=== PATIENT | male | born 1975 | race African-American/Black ===

== ENCOUNTER 2018-12-01 07:30 | Inpatient (IN) ==
[2018-12-01] MEDS ORDERED: NS 2,000 ML ONE (07:49)
[2018-12-01] MEDS ORDERED: NS 1,000 ML IV ONE ×4 (08:00→12:01)
--- NOTE | 2018-12-01 08:11 | PROVIDER DOCUMENTATION ---
HPI-General Adult - General Chief Complaint: Weakness Stated Complaint: FEELS LIKE NEEDS BLOOD Time Seen by Provider: 12/01/18 07:51 Source: patient Allergies/Adverse Reactions: Patient Allergies Allergy/AdvReac Type Severity Reaction Status Date / Time Penicillins Allergy SHORTNESS Verified 07/17/18 09:48 OF BREATH Home Medications: Home Medication List Medication Instructions Recorded Confirmed Last Taken Type Bictegrav/Emtricit/Tenofov Ala 1 each PO DAILY 07/17/18 12/01/18 Unknown History [Biktarvy 50-200-25 mg Tablet] - History of Present Illness -Gen Adult Nature of Presenting Problems: Patient with a history of chronic intermittent blood dyscrasia and HIV reports weakness and decreased appetite for 3 days. Denies fever, vomiting, diarrhea or cough. States that these symptoms are usually indicative of his hematologic flare up. Denies any current pain Location of Pain/Injury: reports: none Severity: reports: moderate Onset/Duration: reports: 3 days ago Modifying Factors: improves with: nothing Associated Symptoms: reports: fatigue. denies: back/neck pain, cough, fever/chills Similar Symptoms Previously?: Yes Recently seen or treated by another doctor?: Yes (ID physician (CD4 and viral load-"not bad but not as good as they could be") Review of Systems - Adult - REVIEW OF SYSTEMS - ADULT Constitutional: reports: see HPI. denies: chills, fever, night sweats, weight gain, weight loss Eyes: reports: no symptoms reported Ears, Nose, Mouth & Throat: reports: no symptoms reported Cardiovascular: reports: no symptoms reported Respiratory: reports: no symptoms reported Gastrointestinal: reports: poor appetite Genitourinary: reports: no symptoms reported Musculoskeletal: reports: no symptoms reported Integumentary: reports: no symptoms reported Neurological: reports: no symptoms reported Psychiatric: reports: no symptoms reported Endocrine: reports: no symptoms reported Hematologic/Lymphatic: reports: no symptoms reported Allergic/Immunologic: reports: no symptoms reported All Other Systems: Reviewed and Negative Past History - Adult - PAST MEDICAL HISTORY-ADULT Review of Records: reports: Old Records Reviewed Major Childhood Illnesses: reports: denies history Cardiovascular: reports: denies history Respiratory: reports: denies history Gastrointestinal: reports: denies history Obstetrical/Gynecological: reports: denies history Genitourinary: reports: other (FITO) Musculoskeletal: reports: denies history Neurological: reports: denies history Psychiatric: reports: denies history Endocrine/Immune: reports: HIV/AIDS Other Conditions: reports: denies history - PRIOR SURGERIES/PROCEDURES Surgical/Procedure History: reports: reviewed, not pertinent, other (rectal) - IMMUNIZATION STATUS Childhood Immunizations: See Nurse Assessment Flu Vaccine: See Nurse Assessment - FAMILY HISTORY Family History: reviewed, not pertinent Physical Exam-General - PHYSICAL EXAM-ADULT Initial Vital Signs Reviewed: Yes - CONSTITUTIONAL General Appearance: alert, mild distress - EYES Eyes: PERRL/EOMI, pale conjunctivae - HEAD, EARS, NOSE, MOUTH & THROAT HENMT: normocephalic/atraumatic, moist mucous membranes, normal ENT inspection - NECK Neck: non-tender, full range of motion - RESPIRATORY Respiratory: chest non-tender, lungs clear - CARDIOVASCULAR Cardiovascular: no edema, no JVD, tachycardia - GASTROINTESTINAL (ABDOMEN) Abdominal Exam: soft - MUSCULOSKELETAL Back Exam: normal inspection, no CVA tenderness, no vertebral tenderness Extremity: normal range of motion, non-tender - SKIN Integumentary: normal color, warm/dry. negative: rash - NEUROLOGIC Neurologic: epic [facility] II-XII nml as tested, grossly normal - PSYCHIATRIC Psych/Mental Status: normal mood/affect, normal thought content, normal thought process, oriented x 3 Progress - PLAN OF CARE/RESULTS Progress/Plan/Lab Results: Vital Signs - 8 hr 12/01/18 07:33 Temperature 97.5 F L Pulse Rate 99 H Respiratory Rate 18 Blood Pressure 81/54 O2 Sat by Pulse Oximetry 95 Orders Category Date Time Status CHEST-PORTABLE [RAD] Stat Exams 12/01/18 07:58 Ordered BLOOD CULTURE [BLDCUL] Stat Lab 12/01/18 08:00 Uncollected CBC WITH ELECTRONIC DIFF [HEME] Stat Lab 12/01/18 08:02 Ordered COMPREHENSIVE METABOLIC PANEL [CHEM] Stat Lab 12/01/18 08:02 Ordered PROTIME WITH INR [COAG] Stat Lab 12/01/18 08:02 Ordered PTT [COAG] Stat Lab 12/01/18 08:02 Ordered URINALYSIS W/POSS RFLX CULT [URINALYSIS] Stat Lab 12/01/18 08:00 Uncollected 0.9% Sodium Chloride Inj [Ns] 1,000 ml Med 12/01/18 07:49 Discontinued .ROUTE As directed 0.9% Sodium Chloride Inj [Ns] 1,000 ml Med 12/01/18 08:00 Active IV 999 mls/hr Result Diagrams: 12/01/18 07:44 12/01/18 07:44 - EKG 1 EKG Interpretation (*Must complete 3 of following elements*): Abnormal Rate: 132 Rhythm: Sinus ST Wave: non-specific ST changes Departure - Departure Date of Disposition Decision: 12/01/18 Time of Disposition Decision: 14:00 DIAGNOSIS: Pancytopenia, HIV disease, FITO (acute kidney injury) Hypotension Qualifiers: Hypotension type: idiopathic hypotension Qualified Code(s): I95.0 - Idiopathic hypotension Disposition: ADMITTED INPATIENT 09 Certified Medical Emergency: Emergent Condition: Critical - Critical Care Note This patient required my direct & personal management of CC.: Yes Total Time (mins): 47 Critical Care Statement: This patient required my direct personal management to treat or rule out processes, the absence of which, could potentiallly result in sudden, clinically significant life or limb threatening deterioration. Attestation - Physician/ YIMI Attestation The physician spent face to face time with patient:: Yes Advanced Practice Provider documentation review:: Supervising physician onsite and consulted in the evaluation and care of this patient. The physician did have a face to face encounter with the patient.
[2018-12-01 08:26] LABS: EOS# 0.01 X1000 (0.0-0.7); EOS% 0.4 % (0.0-10.0); HEMATOCRIT 26.3 % (42.0-52.0); IMM GRAN# 0.03 X1000 (0.0-0.04); IMM GRAN% 1.3 % (0.0-0.5); LYMPH% 35.1 % (20.5-51.1); MCH 27.3 PG (27-31); MCHC 34.2 g/dL (33-37); MCV 79.7 FL (81-99); MONO# 0.41 X1000 (0.11-0.59); MPV 10.1 FL (7.4-10.4); NEUT# 1.03 X1000 (1.4-6.5); NEUT% 45.2 % (42.2-75.2); PLT 88 X1000 (130-400); RDW 16.8 % (11.5-14.5); WBC 2.28 X1000 (4.8-10.8)
--- NOTE | 2018-12-01 08:29 | Diag Imaging Result Doc PS360 ---
EXAM: CHEST-PORTABLE HISTORY: weakness TECHNIQUE: Chest single view COMPARISON: 09/03/2018 FINDINGS: The lungs are well expanded. The heart is not enlarged. The vessels are not distended. There are no infiltrates. No effusion identified. IMPRESSION: Negative exam. Electronically signed by Carlos Juarez 12/01/2018 8:26 AM
[2018-12-01 08:30] LABS: INR 1.4; PROTIME 18.2 Seconds (11.0-16.0)
[2018-12-01 08:31] LABS: PTT 37.4 Seconds (22.3-41.8)
[2018-12-01 08:51] LABS: ALB/GLOB RATIO 0.9; ALBUMIN 3.5 g/dL (3.5-5.0); CALCIUM 8.2 mg/dL (8.8-10.2); POTASSIUM 3.8 mmol/L (3.5-5.1); TOTAL BILIRUBIN 0.65 mg/dL (0.20-1.00); TOTAL PROTEIN 7.5 g/dL (6.3-8.3)
[2018-12-01 10:09] LABS: URINE SOURCE CLEAN CATCH
[2018-12-01 10:14] LABS: BILIRUBIN URINE NEGATIVE (NEGATIVE); BLOOD URINE SMALL (NEGATIVE); COLOR YELLOW; GLUCOSE URINE NEGATIVE (NEGATIVE); KETONE URINE NEGATIVE (NEGATIVE); LEUKOCYTES URINE NEGATIVE (NEGATIVE); NITRITE URINE NEGATIVE (NEGATIVE); PROTEIN URINE 50 mg/dL (NEGATIVE); SP GRAVITY URINE 1.011; TURBIDITY URINE HAZY (CLEAR); UROBILINOGEN URINE NORMAL (NORMAL)
[2018-12-01 10:24] LABS: UR EPITHELIAL CELLS <10 /HPF (<10); URINE BACTERIA NEGATIVE /HPF; URINE RBC 20-40 /HPF (<10); URINE WBC <10 /HPF (<10)
[2018-12-01 10:33] LABS: URINE CASTS GRANULAR PRESENT; URINE YEAST PRESENT
[2018-12-01] MEDS ORDERED: DECADRON IV ONE (12:01)
[2018-12-01] MEDS ORDERED: VANCOMYCIN 1 GM/NS 1 GM/250 ML IVPB IV ONE ×2 (12:22→16:00)
[2018-12-01] MEDS ORDERED: LEVAQUIN 750 MG/D5W 750 MG/150 ML IVPB IV ONE (12:24)
[2018-12-01] MEDS ORDERED: TYLENOL PO ONE (12:26)
[2018-12-01] MEDS ORDERED: ZOFRAN IV PRN (13:10)
[2018-12-01] MEDS ORDERED: VANCOMYCIN IV PER PHARMACY MISC SCH (13:15)
[2018-12-01] MEDS ORDERED: SODIUM CHLORIDE 0.9% INJ SCH (13:15)
[2018-12-01] MEDS ORDERED: TYLENOL PO PRN (13:16)
[2018-12-01] MEDS: NS 1,000 ML IV SCH ×2 (13:45→22:55)
[2018-12-01] MEDS ORDERED: LEVOPHED 8 MG in D5 1/2 NS 250 ML IV SCH (13:45)
[2018-12-01] MEDS ORDERED: DIFLUCAN 100 MG/NS 100 MG/50 ML IVPB IV SCH (14:00)
--- NOTE | 2018-12-01 14:33 | HISTORY AND PHYSICAL ---
CHIEF COMPLAINT: Anorexia, generalized weakness. HISTORY OF PRESENT ILLNESS: This is a 43-year-old gentleman with a history of pancytopenia, HIV/AIDS and chronic kidney disease. He presented to the emergency room complaining of generalized weakness and anorexia for 3 days. He denies any fever, chills, vomiting, diarrhea, or cough. He does report hesitancy on urination over the last 2 days, stating he had to push a little harder to get a stream started and over the last 24 hours, his urine has developed "a nasty smell". PAST MEDICAL HISTORY: 1. HIV/AIDS. 2. Syphilis. 3. Pancytopenia. 4. Acute kidney injury. PAST SURGICAL HISTORY: Condyloma removed x2. SOCIAL HISTORY: He has a 40 pack year history. He continues to smoke. He drinks at least 4 beers a day. He does have a history of crack cocaine and marijuana use, although he states it has been quite some time since he used last. ALLERGIES: Penicillin which causes shortness of breath. HOME MEDICATIONS: A list will be obtained by the nursing staff and once verified, will review and restart as is appropriate. REVIEW OF SYSTEMS: Discussed with patient with pertinent positives stated in the HPI. He denied any syncope, dizziness, any chest pain, palpitations, any fevers, chills, night sweats, recent weight loss or weight gain, any shortness of breath, PND, orthopnea, any nausea, vomiting, diarrhea, constipation, black or bloody vomitus or stools, any gross hematuria, dysuria, frequency or urgency. PHYSICAL EXAMINATION: GENERAL: This is a 43-year-old gentleman who is lying on the stretcher in the emergency room in no distress. VITAL SIGNS: Blood pressure is 84/37 with a heart rate of 120, respirations are 18, temperature was 103.1 degrees with O2 saturations 100% on room air. EYES: Pupils are equal, round, react to light. EOMs are intact. Sclerae anicteric. HEENT: Head is normocephalic, atraumatic. Mucous membranes are moist. NECK: Supple. Trachea midline. CARDIOVASCULAR: Regular rate and rhythm. S1, S2 appreciated. He has no lower extremity edema. Calves are nontender to palpation bilaterally with peripheral pulses palpable x4 extremities. PULMONARY: Breath sounds are clear with no increased work of breathing noted. Chest rises and falls symmetric respiration. Chest wall is nontender to palpation. GASTROINTESTINAL: Abdomen is soft, nontender, nondistended with bowel sounds in all 4 quadrants. GENITOURINARY: He has no CVA nor suprapubic tenderness. NEUROLOGIC: He is alert and oriented x3. SKIN: Warm and dry. LABORATORY DATA: WBC is 2.2 with hemoglobin 9, hematocrit 26.3, and platelets of 88,000. INR is 1.40. Sodium 125, potassium 3.8, BUN 55, creatinine 3 with a glucose of 131. His lactate is 1.6. Urinalysis is positive for 20 to 40 red blood cells, small blood with yeastlike cells present. Chest x-ray reveals lungs well expanded, heart not enlarged, vessels are not distended. There are no infiltrates, no effusion identified. Influenza A and B are negative. Blood culture and urine cultures are pending. ASSESSMENT AND PLAN: 1. Sepsis. Urine could very likely be a source as he has had some hesitancy. He did state that he has developed a strong odor to his urine over the last 24 hours. Yeast is noted on urinalysis. Antibiotic coverage of Maxipime and vancomycin dosed per pharmacy. 2. Hypotension. He has received 4 L fluid. We will continue saline at 150 and we will start Levophed as his systolic pressure is remaining in the 80s. 3. Questionable urinary tract infection and yeast. As above 4. Pancytopenia. This is chronic. 5. Hyponatremia. Given fluids. We will trend labs. 6. Chronic kidney disease. We will renal dose any medications and trend labs. 7. HIV/AIDS. We will continue his Biktarvy 50/200/25. 8. Alcohol use. The patient does drink at least 4 beers daily. We will monitor for any signs of withdrawal. 9. Nicotine use. We will give a nicotine patch. Dictated by SAM Rod for Antonio Meza MD cc: SAM Rod MD [facility]
[2018-12-01] MEDS ORDERED: MYCAMINE 100 MG in NS 100 ML IV SCH (16:00)
[2018-12-01] MEDS: MAXIPIME 1 GM in NS 50 ML IV SCH (17:09)
[2018-12-01] MEDS: PROTONIX IV SCH (17:09)
--- NOTE | 2018-12-01 17:57 | HISTORY AND PHYSICAL ---
ADDENDUM: This is an addendum to history and physical. I have seen and examined Mr. Hobbs today. He was in the ICU. He is currently still borderline hypotensive, but the parameters have improved. Mr. Hobbs said he presented to the emergency department today mainly because of generalized weakness and anorexia. He is known to have HIV. He also said his urine seems to be a little darker and have some smell to it. Upon presenting to the emergency department he was found to have a blood pressure of 81/54, pulse of 99, respiration is 18, temperature 97.5 degrees. He did have a temperature of 103.1 degrees at some point. His current physical exam has also been reviewed. I have reviewed all his labs and imaging studies. ASSESSMENT AND PLAN: 1. Septic shock. Source of infection is unclear. Presumably it is related to urinary tract infection. Urine culture did show yeastlike element. I am not quite sure if he is has developed fungemia. We will cover him with broad-spectrum antibiotics including cefepime and daptomycin, and add micafungin for antifungal coverage. 2. History of human immunodeficiency virus/acquired immunodeficiency syndrome. The patient is on antiretroviral therapy. 3. Alcohol use. 4. Clinical volume depletion. We will continue with fluid resuscitation. 5. [id number] renal failure. Creatinine is up to 3.0. We will continue to follow this and also avoid any nephrotoxic drugs. So in general, Mr. Hobbs is an human immunodeficiency virus/acquired immunodeficiency syndrome patient on adequate antiretroviral therapy. He presented with what seems to be persistent hypotension with elevated lactic acid. We theorized that he is septic and he is being covered with broad-spectrum antibiotics. Blood cultures have been done as well as urine culture. Chest x- ray was unremarkable, so we are going to do a CT scan of the abdomen and pelvis to rule out any intra-abdominal cavity pathology as the source of the septic shock. Please refer to the details of the history and physical examination which has been dictated by the nurse practitioner. cc: Antonio Meza MD
[2018-12-01] MEDS: CUBICIN 500 MG in NS 100 ML IV SCH ×2 (18:17)
--- NOTE | 2018-12-01 19:02 | Diag Imaging Result Doc PS360 ---
EXAM: CT ABDOMEN/PELVIS W/O CONTRAST HISTORY: septic/HIV/AIDS TECHNIQUE: CT abdomen and pelvis without contrast COMPARISON: 07/17/2018 FINDINGS: The spleen is markedly enlarged measuring at least 10.1 x 17.1 x 15.0 cm. The liver is also enlarged measuring just under 24 cm in length. No focal abnormality identified on this noncontrasted study. No calcified gallstone or adjacent inflammation. Normal pancreas and adrenal glands. No left renal stone. There is a nonobstructing 5 mm right renal stone. No hydronephrosis. No aortic aneurysm. No bowel obstruction. The urinary bladder is mildly distended and appears normal. The prostate is not enlarged. No abscess. IMPRESSION: 1.Hepatosplenomegaly 2.Nonobstructing right renal stone This exam was performed using automated exposure control, adjustment of mA or kV according to patient size, and/or use of iterative reconstruction technique. Electronically signed by Carlos Juarez 12/01/2018 7:00 PM
[2018-12-02] MEDS: NS 1,000 ML IV SCH ×3 (03:51→09:44)
[2018-12-02] MEDS: MAXIPIME 1 GM in NS 50 ML IV SCH (04:50)
[2018-12-02] MEDS: PROTONIX IV SCH (05:20)
[2018-12-02 06:11] LABS: HEMATOCRIT 21.5 % (42.0-52.0); HEMOGLOBIN 7.3 g/dL (14.0-18.0); LYMPH# 0.16 X1000 (1.2-3.4); LYMPH% 18.2 % (20.5-51.1); MCH 27.2 PG (27-31); MCV 80.2 FL (81-99); MONO# 0.19 X1000 (0.11-0.59); MONO% 21.6 % (1.7-9.3); MPV 10.4 FL (7.4-10.4); NEUT# 0.53 X1000 (1.4-6.5); NEUT% 60.2 % (42.2-75.2); RBC 2.68 XMIL (4.7-6.1); RDW 16.8 % (11.5-14.5); WBC 0.88 X1000 (4.8-10.8)
[2018-12-02 06:12] LABS: PLT 39 X1000 (130-400)
[2018-12-02 06:46] LABS: AGAP 11; ALB/GLOB RATIO 0.8; ALBUMIN 2.9 g/dL (3.5-5.0); ALKALINE PHOSPHATASE 84 U/L (32-122); BUN 36 mg/dL (8-22); CHLORIDE 105 mmol/L (98-107); COSMO 279; CREATININE 1.3 mg/dL (0.7-1.2); ESTIMATED GFR > 60; GLUCOSE 151 mg/dL (70-104); GOT 100 U/L (10-34); GPT 50 U/L (10-44); POTASSIUM 4.4 mmol/L (3.5-5.1); SODIUM 134 mmol/L (136-145); TCO2 18 mmol/L (25-35); TOTAL BILIRUBIN 0.41 mg/dL (0.20-1.00); TOTAL PROTEIN 6.4 g/dL (6.3-8.3)
[2018-12-02 07:21] LABS: INR 1.42; PROTIME 18.4 Seconds (11.0-16.0)
[2018-12-02 07:51] LABS: RETIC% 0.51 % (0.8-2.1); RETIC-HE 21.9 PG (28.2-36.6)
[2018-12-02] MEDS ORDERED: PATIENT'S OWN MED PO SCH (09:00)
[2018-12-02] MEDS ORDERED: NS 250 ML ONE (09:04)
[2018-12-02 14:20] VITALS: BP 117/76
--- NOTE | 2018-12-03 07:01 | DISCHARGE SUMMARY ---
ADMISSION DATE: 12/01/2018 DISCHARGE DATE: 12/02/2018 DATE OF DISCHARGE/[place]: 12/02/2018. CONSULTATION DURING ADMISSION: Infectious Disease was consulted, however, patient did not even wait to be seen before he left. DISCHARGE DIAGNOSES: 1. Septic shock. Source was still undefined. 2. HIV with AIDS. 3. Alcohol abuse. 4. Severe clinical volume depletion. 5. Acute on chronic renal failure. 6. Severe pancytopenia. 7. Hepatosplenomegaly, etiology unclear, probably related to the HIV. 8. Nonobstructing right renal stone. PRESENTING COMPLAINT: Generalized weakness and anorexia. HISTORY OF PRESENTING COMPLAINT: Mr. Hobbs is a 43-year-old gentleman with a history of HIV and chronic kidney disease, who came to the emergency department because of generalized weakness and fever. He was evaluated, and found to be tachycardic, febrile, and presenting blood pressure of 81/54. He was admitted to the ICU for critical care management. HOSPITAL COURSE: Mr. Hobbs was adequately fluid resuscitated, and was started on a short period of Levophed, but this was discontinued since his blood pressure significantly improved with fluid resuscitation. He was started on IV broad-spectrum antibiotics as well as antifungal, and he responded pretty well to the regimen. He was also started back on his home HIV medications. Anyway, this morning, his blood count has shown his hemoglobin is 7.3 so he has been given a unit of blood, but his WBC as well as his platelet count have all dropped. He has been afebrile, and he is feeling better, but I still thought that he needed to be in the hospital for more care until we have the blood cultures report. In any case, Mr. Hobbs is extremely adamant that he is going to leave [place] because he has some things to do at home, and that he normally follows up with his blood doctors in [place]. He would rather go there for whatever needed to be done to be done over there. I did explain to him that we think he is still remarkably sick, and that his numbers are extremely critical. He is feeling a little bit better now because of the management that he is undergoing. If he goes home and not getting antibiotics, he runs a very high risk of becoming extremely even sicker and can . He said he understood all that, but he feels like he would take care of it at home at himself, and that he just wanted to leave against medical advice. cc: Antonio Meza MD
--- NOTE | 2018-12-03 10:45 | EKG Report ---
Test Performed on : 12/01/2018 07:55:12 AM Test Reason : TACHYCARDIA Blood Pressure : / mmHG Vent. Rate : 132 BPM Atrial Rate : 132 BPM P-R Int : 130 ms QRS Dur : 082 ms QT Int : 304 ms P-R-T Axes : 031 040 054 degrees QTc Int : 450 ms Sinus tachycardia. Possible Left atrial enlargement Nonspecific T wave abnormality Abnormal ECG No previous ECGs available Unconfirmed Result
[2018-12-03] MEDS ORDERED: VANCOMYCIN 1,400 MG in NS 250 ML IV SCH (16:00)
== END 2018-12-02 15:01 | disposition left against medical advice (07) | DRG 974 ==
LOC: SUPCPDRO → ED 07:30 → ICU 13:19
PROVIDERS: ATTEND Internal Medicine
CPT/HCPCS: 36430; 71010; 71045; 74176; 80053; 81001; 83605; 84443; 85025; 85045; 85384; 85610; 85730; 86850; 86900; 86901; 86920; 87040; 87088; 87275; 87276; 87804; 93005; 96361; 96365; 96367; 96375; 99285; 99291; A9270; C9113; J0692; J0878; J1450; J1956; J2248; J3370; J7030; J7050; P9016; S0164